=== PATIENT | female | born 1990 | race Caucasian/White ===

== ENCOUNTER 2018-02-23 09:02 | Emergency (ER) | payer BC, MEDICAID ==
[2018-02-23] MEDS: KETOROLAC 30 MG INJ IM (09:59)
== END 2018-02-23 10:19 | disposition home or self-care (01) ==
LOC: FTE 09:02
DX: M54.5 Low back pain (principal); J45.909 Unspecified asthma, uncomplicated
CPT/HCPCS: 81025; 96372; 99284-25

== ENCOUNTER 2018-03-30 21:02 | Emergency (ER) | payer BC, MEDICAID ==
[2018-03-31] MEDS: ONDANSETRON 4 MG TAB PO (00:49)
[2018-03-31 00:50] LABS: URINE PH (Dip) POC 6.5 (5.0-8.5)
[2018-03-31 00:50] LABS: URINE BLOOD (Dip) POC Negative (NEGATIVE); URINE GLUCOSE (Dip) POC Negative (NEGATIVE); URINE KETONES (Dip) POC Trace (NEGATIVE); URINE LEUKOCYTE EST (Dip) POC Negative (NEGATIVE); URINE NITRITE (Dip) POC Negative (NEGATIVE); URINE TOTAL PROTEIN POC 1+ (NEGATIVE)
[2018-03-31] MEDS: KETOROLAC 30 MG INJ IM (00:50)
== END 2018-03-31 01:44 | disposition home or self-care (01) ==
LOC: FTE 03-31 01:44
DX: M54.5 Low back pain (principal); R11.10 Vomiting, unspecified; R19.7 Diarrhea, unspecified
CPT/HCPCS: 81003; 81025; 96372; 99284-25